=== PATIENT | male | born 1960 | race Caucasian/White ===

== ENCOUNTER 2016-11-27 15:01 | Emergency (ER) | payer BC ==
[~2016-11-27] VITALS: Ht 172.7 cm; Wt 87.5 kg
--- NOTE | ~2016-11-27 | CR262 ---
[facility]. [facility] A Service of [facility] & [facility] RADIOLOGY TEXT RESULTS PATIENT: AYO GIBSON LOCATION: SED : 58 UNIT #: [id number] AGE: [address]: ALEX WALLACE SEX: M ORDER DR: [id number] [id number] E MR#: [id number] #: [id number] NAME: AYO GIBSON : 1960 SEX: M STUDY DATE/TIME: 11/27/2016 15:42 UNIT: SED ROOM: STUDY DESCRIPTION: CR Toe 2 Views Great Lt Attending Physician: Alex Wallace R.N. Ordering Physician: Gustavo Andrade M.D. Primary Care Physician: Tian Rangel M.D. MEDICAL IMAGING REPORT This report is preliminary unless electronic signature is present. EXAM Three views of the left great toe 11/27/2016 HISTORY 56-year-old male with left great toe laceration across the anterior surface of the toe today. Cut with a chainsaw. FINDINGS There is a comminuted fracture of the midshaft of the proximal phalanx of the great toe with multiple bony fragments displaced predominantly medially. There is overlying soft tissue defect or laceration at the fracture site. No intraarticular fracture extension is seen. There is no joint dislocation. IMPRESSION Comminuted but not significantly displaced fracture involving the mid shaft of the proximal phalanx of the great toe with overlying soft tissue laceration defect. No articular involvement or joint dislocation. Dictated by... Mary Lawrence M.D. THIS IS AN ELECTRONICALLY VERIFIED REPORT Mary Lawrence M.D. at 11/29/2016 9:52 AM OLENA/clif TD: 11/28/2016 12:39 JOB #: [id number] MEDICAL IMAGING REPORT Page 1 of 1
== END 2016-11-27 18:26 | disposition hospice, home (50) ==
LOC: SED 15:01
DX: S92.412A Displaced fracture of proximal phalanx of left great toe, initial encounter for closed fracture (principal); E11.9 Type 2 diabetes mellitus without complications; W29.3XXA Contact with powered garden and outdoor hand tools and machinery, initial encounter; Y92.009 Unspecified place in unspecified non-institutional (private) residence as the place of occurrence of the external cause; S91.112A Laceration without foreign body of left great toe without damage to nail, initial encounter
CPT/HCPCS: 29405; 73660; 99284; J2543